=== PATIENT | female | born 2000 | race African-American/Black ===

== ENCOUNTER 2024-05-29 09:49 | Emergency (ER) | payer MEDICAID ==
[~2024-05-29] VITALS: Ht 165.1 cm; Wt 68.1 kg
[2024-05-29 10:13] LABS: Basophils # (auto) 0 10 ^3/uL (0-0.2); Basophils % (auto) 0.3 % (0.0-2.0); Eosinophils # (auto) 0 10 ^3/uL (0-0.8); Hematocrit 46.1 % (36.0-46.0); Hemoglobin 15.8 g/dL (12.2-16.2); Lymphocytes # (auto) 1.4 10 ^3/uL (0.4-5.4); Lymphocytes % (auto) 16.1 % (10.0-50.0); Mean Corpuscular Hemoglobin 30.5 pg (28.0-32.0); Mean Corpuscular Hgb Conc. 34.3 g/dL (32.0-36.0); Mean Corpuscular Volume 88.7 fL (80.0-100.0); Monocytes # (auto) 0.9 10 ^3/uL (0-1.3); Neutrophils # (auto) 6.4 10 ^3/uL (1.6-8.6); Neutrophils % (auto) 73.6 % (37.0-80.0); Red Blood Cells 5.19 10^6/uL (4.0-5.20); Red Cell Distribution Width 13.5 % (11.8-14.3); White Blood Cell 8.6 10^3/uL (4.4-10.8)
[2024-05-29 10:30] VITALS: PULSE 61; RESP 16; O2SAT 98
[2024-05-29] MEDS: PROCHLORPERAZINE EDISYLATE 5 MG/ML 2ML VIAL IV ONE (10:44)
[2024-05-29] MEDS: SODIUM CHLORIDE 0.9% 1,000 ML IV ONE (10:45)
[2024-05-29] MEDS: PANTOPRAZOLE 40 MG/10 ML VIAL INJ IV ONE (10:45)
[2024-05-29 11:00] LABS: Alanine Aminotransferase 25 U/L (7-40); Albumin 4.9 g/dL (3.2-4.8); Alkaline Phosphatase 81 U/L (46-116); Anion Gap 12 (5-15); Aspartate Aminotransferase 21 U/L (13-40); BUN/Creatinine Ratio 15.8 (10.0-20.0); Blood Urea Nitrogen 16 mg/dL (9-23); Carbon Dioxide 24 mmol/L (20-30); Chloride 100 mmol/L (98-107); Glucose 92 mg/dL (74-106); Potassium 3.6 mmol/L (3.5-5.1); Sodium 136 mmol/L (136-145)
[2024-05-29 11:01] LABS: Urine Bacteria None Seen /hpf (None Seen)
[2024-05-29 11:01] LABS: Bilirubin, Total 0.8 mg/dL (0.2-1.0); Total Protein 8.6 g/dL (5.7-8.2)
[2024-05-29 11:25] LABS: Urine Blood Negative /uL (Negative); Urine Budding Yeast OCCASIONAL /hpf (None Seen); Urine Clarity Turbid (Clear); Urine Color Yellow (Yellow); Urine Hyaline Cast FEW /lpf (0 - 2); Urine Mucus FEW (None Seen); Urine Protein, UAD 2+ (Negative); Urine Specific Gravity 1.037 (1.001-1.035); Urine Urobilinogen 3 mg/dL (Negative); Urine WBC 9 /hpf (0 - 5)
[2024-05-29 12:33] LABS: Amphetamine Screen, Urine Neg (NEGATIVE); Barbiturate Scree,Urine Neg (NEGATIVE); Benzodiazephine Screen, Urine Neg (NEGATIVE); Cocaine Screen, Urine Neg (NEGATIVE)
[2024-05-29 12:34] LABS: Cannabinoid Screen, Urine Pos (NEGATIVE); Opiate Scree,Urine Neg (NEGATIVE); Phencyclidine Screen, Urine Neg (NEGATIVE)
[2024-05-29] MEDS ORDERED: ZOFR4T PO (12:36)
[2024-05-29 12:50] VITALS: BP 103/58; PULSE 60; RESP 13; TEMP 97.5; O2SAT 97
== END 2024-05-29 12:50 | disposition home or self-care (01) ==
LOC: ER 09:49 → EDBD 09:49 → ER 12:50
DX: K52.9 Noninfective gastroenteritis and colitis, unspecified (principal); F12.90 Cannabis use, unspecified, uncomplicated; Z90.49 Acquired absence of other specified parts of digestive tract
CPT/HCPCS: 36415; 80053; 80307; 81001; 81025; 85025; 96361; 96374; 96375; 99284; J0780; J7030